=== PATIENT | female | born 1970 | race Two or more races ===

== ENCOUNTER 2021-05-25 20:00 | Inpatient (IN) | payer MEDICAID ==
[~2021-05-25] VITALS: Ht 157.5 cm; Wt 54.0 kg
[2021-05-25] MEDS ORDERED: MORPHINE SULFATE 2 MG/ML CPJ (NOT FOR IM USE) IV NR (20:30)
[2021-05-25] MEDS ORDERED: ONDANSETRON HCL 4MG/2ML INJ IV NR (20:30)
[2021-05-25] MEDS ORDERED: SODIUM CHLORIDE 0.9% 1,000 ML IV ONE ×2 (20:30→23:00)
[2021-05-25 21:35] LABS: BG BASE EXCESS 0.3 mmol/L (-2.0-2.0); BG CARBOXYHEMOGLOBIN 0.2 % (0.5-1.5); BG DEOXYHEMOGLOBIN 3.5 % (0.0-5.0); BG FRACTION INSPIRED OXYGEN 21; BG HCO3 ACT 23.3 mmol/L (22.0-26.0); BG METHEMOGLOBIN 0.2 % (0.0-1.5); BG OXYGEN SATURATION 96.5 % (92.0-98.5); BG OXYHEMOGLOBIN 96.1 % (94.0-97.0); BG PH 7.493 (7.350-7.450); BG PO2 88.1 mmHg (75.0-100.0); BG SAMPLE SITE RIGHT RADIAL; BG TOTAL HEMOGLOBIN 8.9 g/dL (12.0-18.0); BG VENT MODE ROOM AIR
[2021-05-25 21:40] LABS: HEMATOCRIT. 27.1 % (36.0-48.0); HEMOGLOBIN. 8.9 g/dL (12.0-16.0); MEAN CORPUSCULAR HEMOGLOBIN 27.4 pg (28.0-32.0); MEAN CORPUSCULAR VOLUME 83.1 fL (81.0-99.0); MEAN PLATELET VOLUME 8.2 fl (7.4-10.4); PLATELET 174 x1000/uL (130-400); RED BLOOD CELL COUNT 3.26 mill/uL (4.2-5.4); RED CELL DISTRIBUTION WIDTH 19.3 % (11.6-14.6)
[2021-05-25 21:45] LABS: CHLORIDE 108 mEq/L (98-107)
[2021-05-25 21:47] LABS: INR 1.3; PROTHROMBIN TIME 13.5 sec (9.6-11.0)
[2021-05-25 21:49] LABS: ETHANOL BLOOD < 10 mg/dL
[2021-05-25 21:53] LABS: CREATINE KINASE 27 IU/L (26-192)
[2021-05-25 22:14] LABS: PLATELET ESTIMATE NORMAL
[2021-05-25 22:18] LABS: CLARITY URINE CLEAR (CLEAR); COLOR URINE DARK YELLOW (YELLOW); KETONES URINE NEGATIVE (NEGATIVE); LEUKOCYTE ESTERASE URINE NEGATIVE (NEGATIVE); NITRITE URINE NEGATIVE (NEGATIVE); OCCULT BLOOD URINE NEGATIVE (NEGATIVE); PROTEIN URINE 1+ (NEGATIVE); SPECIFIC GRAVITY URINE 1.019 (1.005-1.030)
[2021-05-25 22:32] LABS: METHADONE URINE SCREEN NEGATIVE (NEGATIVE)
[2021-05-25 22:33] LABS: *AMPHETAMINES SCREEN URINE NEGATIVE (NEGATIVE); *BARBITURATES SCREEN URINE NEGATIVE (NEGATIVE); *BENZODIAZEPINES SCREEN URINE NEGATIVE (NEGATIVE); *COCAINE SCREEN URINE NEGATIVE (NEGATIVE); CANNABINOID URINE SCREEN NEGATIVE (NEGATIVE); OPIATES URINE SCREEN PRESUMTIVE POSITIVE (NEGATIVE); PHENCYCLIDINE URINE SCREEN NEGATIVE (NEGATIVE)
[2021-05-25] MEDS ORDERED: PIPERACILLIN/TAZ 3.375G PREMIX 50 ML IV NR (23:00)
[2021-05-25] MEDS ORDERED: PIPERACILLIN/TAZOBACTAM 3.375GM/50ML PREMIX IV ONE (23:00)
[2021-05-25] MEDS ORDERED: VANCOMYCIN 1 G PREMIX 200 ML IV NR (23:00)
[2021-05-25] MEDS ORDERED: MORPHINE SULFATE 4 MG/ML CPJ (NOT FOR IM USE) IV ONE (23:45)
[2021-05-25] MEDS ORDERED: MORPHINE SULFATE 2 MG/ML CPJ (NOT FOR IM USE) IV SCH (23:45)
[2021-05-26] MEDS ORDERED: POTASSIUM CHLORIDE 20MEQ TABLET SR PO SCH (05:45)
[2021-05-26] MEDS: MORPHINE SULFATE 2 MG/ML CPJ (NOT FOR IM USE) IV PRN ×2 (05:48→12:01)
[2021-05-26 12:02] VITALS: BP 101/65
[2021-05-26] MEDS ORDERED: HYDROCODONE/ACETAMINOPHEN 5/325MG TABLET PO PRN (13:00)
[2021-05-26] MEDS ORDERED: ONDANSETRON HCL 4MG/2ML INJ IV PRN (13:00)
[2021-05-26] MEDS ORDERED: FUROSEMIDE 40MG/4ML VIAL IVP NR (13:00)
[2021-05-26] MEDS ORDERED: NALOXONE HCL 0.4MG/ML VIAL IV PRN ×2 (13:15→20:00)
[2021-05-26] MEDS: VANCOMYCIN 500 MG PREMIX 100 ML IV SCH (15:09)
[2021-05-26] MEDS: PIPERACILLIN/TAZOBACTAM 3.375 G in DEXTROSE 5% WATER 50 ML IV SCH ×3 (15:09→22:00)
[2021-05-26 16:00] VITALS: BP 104/61
[2021-05-26] MEDS: HYDROCODONE/ACETAMINOPHEN 10/325MG TABLET PO PRN (19:46)
[2021-05-26 20:00] VITALS: BP 118/61
[2021-05-26] MEDS ORDERED: MORPHINE SULFATE 2 MG/ML CPJ (NOT FOR IM USE) IV PRN (23:30)
[2021-05-27] VITALS: BP 124/64
[2021-05-27 04:00] VITALS: BP 121/65
[2021-05-27] MEDS: PIPERACILLIN/TAZOBACTAM 3.375 G in DEXTROSE 5% WATER 50 ML IV SCH ×2 (05:19→13:26)
[2021-05-27] MEDS: HYDROCODONE/ACETAMINOPHEN 10/325MG TABLET PO PRN ×3 (06:49→20:44)
[2021-05-27 08:00] VITALS: BP 118/55
[2021-05-27] MEDS: VANCOMYCIN 500 MG PREMIX 100 ML IV SCH (08:00)
[2021-05-27 12:00] VITALS: BP 112/67
[2021-05-27 12:32] LABS: HEMATOCRIT. 27.2 % (36.0-48.0); MEAN CORPUSCULAR HEMOGLOBIN 27.5 pg (28.0-32.0); MEAN CORPUSCULAR VOLUME 82.7 fL (81.0-99.0); MEAN PLATELET VOLUME 8.4 fl (7.4-10.4); PLATELET 184 x1000/uL (130-400); RED BLOOD CELL COUNT 3.29 mill/uL (4.2-5.4); RED CELL DISTRIBUTION WIDTH 19.3 % (11.6-14.6)
[2021-05-27] MEDS: LEVOTHYROXINE SODIUM 50MCG TABLET PO SCH (13:39)
[2021-05-27 13:49] LABS: PLATELET ESTIMATE NORMAL
[2021-05-27 16:00] VITALS: BP 117/62
[2021-05-27 20:00] VITALS: BP 112/67
[2021-05-27] MEDS ORDERED: CEFTRIAXONE 1 G PREMIX 50 ML IV SCH (20:30)
[2021-05-27] MEDS: CEFTRIAXONE 1,000 MG in DEXTROSE 5% WATER 50 ML IV SCH (21:00)
[2021-05-28] VITALS (11 sets, daily range): BP systolic 103–125; BP diastolic 54–72
[2021-05-28] MEDS: VANCOMYCIN 500 MG PREMIX 100 ML IV SCH ×2 (02:00→14:39)
[2021-05-28] MEDS: HYDROCODONE/ACETAMINOPHEN 10/325MG TABLET PO PRN ×3 (04:46→21:55)
[2021-05-28] MEDS: LEVOTHYROXINE SODIUM 50MCG TABLET PO SCH (06:21)
[2021-05-28] MEDS ORDERED: LIDOCAINE HCL 1% 20ML VIAL (Pyxis) INJ ONE (08:26)
[2021-05-28] MEDS ORDERED: IOHEXOL-300 50 ML BOTTLE IV ONE (09:21)
[2021-05-28] MEDS: MORPHINE SULFATE 2 MG/ML CPJ (NOT FOR IM USE) IV PRN ×2 (10:21→17:22)
[2021-05-28] MEDS: SODIUM CHLORIDE 0.45% 1,000 ML IV SCH (12:54)
[2021-05-28 15:37] LABS: HEMATOCRIT. 21.3 % (36.0-48.0); HEMOGLOBIN. 7.1 g/dL (12.0-16.0); MEAN CORPUSCULAR HEMOGLOBIN 26.9 pg (28.0-32.0); MEAN CORPUSCULAR VOLUME 81.3 fL (81.0-99.0); MEAN PLATELET VOLUME 8.5 fl (7.4-10.4); PLATELET 154 x1000/uL (130-400); RED BLOOD CELL COUNT 2.63 mill/uL (4.2-5.4); RED CELL DISTRIBUTION WIDTH 18.9 % (11.6-14.6)
[2021-05-28] MEDS ORDERED: POTASSIUM CHLORIDE 20MEQ TABLET SR PO NR (17:00)
[2021-05-28] MEDS: CEFTRIAXONE 1,000 MG in DEXTROSE 5% WATER 50 ML IV SCH (21:43)
[2021-05-28 21:52] LABS: PLATELET ESTIMATE NORMAL
[2021-05-28 23:47] LABS: HEMATOCRIT 25.1 % (36.0-48.0); HEMOGLOBIN 8.4 g/dL (12.0-16.0)
[2021-05-29] VITALS: BP 91/61
[2021-05-29 04:00] VITALS: BP 116/67
[2021-05-29] MEDS: MORPHINE SULFATE 2 MG/ML CPJ (NOT FOR IM USE) IV PRN ×3 (04:55→18:22)
[2021-05-29 05:48] VITALS: BP 116/67
[2021-05-29] MEDS: LEVOTHYROXINE SODIUM 50MCG TABLET PO SCH (06:04)
[2021-05-29] MEDS: SODIUM CHLORIDE 0.45% 1,000 ML IV SCH (06:05)
[2021-05-29 06:28] LABS: HEMATOCRIT. 25.3 % (36.0-48.0); HEMOGLOBIN. 8.4 g/dL (12.0-16.0); MEAN CORPUSCULAR HEMOGLOBIN 26.7 pg (28.0-32.0); MEAN PLATELET VOLUME 8.7 fl (7.4-10.4); PLATELET 149 x1000/uL (130-400); RED BLOOD CELL COUNT 3.16 mill/uL (4.2-5.4); RED CELL DISTRIBUTION WIDTH 17.3 % (11.6-14.6)
[2021-05-29 11:17] LABS: PLATELET ESTIMATE NORMAL
[2021-05-29 12:00] VITALS: BP 120/88
[2021-05-29] MEDS: VANCOMYCIN 500 MG PREMIX 100 ML IV SCH (13:58)
[2021-05-29] MEDS: HYDROCODONE/ACETAMINOPHEN 10/325MG TABLET PO PRN ×2 (14:00→21:22)
[2021-05-29] MEDS ORDERED: SYN150 PO (14:12)
[2021-05-29] MEDS ORDERED: OXYC30TA86 PO (14:12)
[2021-05-29] MEDS ORDERED: FLUO15CR2 TP (14:12)
[2021-05-29] MEDS ORDERED: MUPI1OIN4 TP (14:12)
[2021-05-29] MEDS ORDERED: SIMV-43 PO (14:12)
[2021-05-29 16:00] VITALS: BP 118/76
[2021-05-29] MEDS: MEROPENEM 1,000 MG in SODIUM CHLORIDE 0.9% 100 ML IV SCH (17:23)
[2021-05-29 20:00] VITALS: BP 121/61
[2021-05-30 00:05] VITALS: BP 119/65
[2021-05-30] MEDS: MORPHINE SULFATE 2 MG/ML CPJ (NOT FOR IM USE) IV PRN ×2 (00:06→05:03)
[2021-05-30] MEDS: SODIUM CHLORIDE 0.45% 1,000 ML IV SCH ×2 (00:06→22:49)
[2021-05-30 04:00] VITALS: BP 114/52
[2021-05-30] MEDS: LEVOTHYROXINE SODIUM 50MCG TABLET PO SCH (05:03)
[2021-05-30] MEDS: MEROPENEM 1,000 MG in SODIUM CHLORIDE 0.9% 100 ML IV SCH ×2 (05:03→17:07)
[2021-05-30] MEDS: ASCORBIC ACID 500 MG TABLET PO SCH (08:09)
[2021-05-30] MEDS: VANCOMYCIN 500 MG PREMIX 100 ML IV SCH (08:09)
[2021-05-30] MEDS: ZINC SULFATE 220 MG ( 50 ) CAPSULE PO SCH (08:09)
[2021-05-30] MEDS: MULTIVITAMINS,THER W-MINERALS TABLET PO SCH (08:09)
[2021-05-30 08:41] LABS: HEMOGLOBIN. 9.5 g/dL (12.0-16.0); MEAN CORPUSCULAR HEMOGLOBIN 27.2 pg (28.0-32.0); MEAN CORPUSCULAR VOLUME 80.4 fL (81.0-99.0); MEAN PLATELET VOLUME 8.4 fl (7.4-10.4); PLATELET 154 x1000/uL (130-400); RED BLOOD CELL COUNT 3.49 mill/uL (4.2-5.4); RED CELL DISTRIBUTION WIDTH 17.9 % (11.6-14.6)
[2021-05-30 08:51] LABS: CHLORIDE 109 mEq/L (98-107)
[2021-05-30 10:04] LABS: PLATELET ESTIMATE NORMAL
[2021-05-30 10:06] LABS: KAPPA/LAMBDA RATIO 0.97 (0.26-1.65); LAMBDA LT CHAINS FREE SERUM 129.4 mg/L (5.7-26.3)
[2021-05-30] MEDS: HYDROCODONE/ACETAMINOPHEN 10/325MG TABLET PO PRN (10:19)
[2021-05-30 12:00] VITALS: BP 110/67
[2021-05-30] MEDS: OXYCODONE HCL 20MG TABLET SR 12HR PO SCH ×2 (14:16→22:48)
[2021-05-30 16:00] VITALS: BP 109/60
[2021-05-30 20:00] VITALS: BP 106/48
[2021-05-31] VITALS: BP 110/89
[2021-05-31] MEDS: VANCOMYCIN 500 MG PREMIX 100 ML IV SCH (01:44)
[2021-05-31] MEDS: HYDROCODONE/ACETAMINOPHEN 10/325MG TABLET PO PRN ×2 (03:19→17:20)
[2021-05-31 04:00] VITALS: BP 97/58
[2021-05-31] MEDS: MEROPENEM 1,000 MG in SODIUM CHLORIDE 0.9% 100 ML IV SCH ×2 (04:37→16:05)
[2021-05-31 08:00] VITALS: BP 164/64
[2021-05-31] MEDS: ZINC SULFATE 220 MG ( 50 ) CAPSULE PO SCH (09:18)
[2021-05-31] MEDS: MULTIVITAMINS,THER W-MINERALS TABLET PO SCH (09:18)
[2021-05-31] MEDS: ASCORBIC ACID 500 MG TABLET PO SCH (09:18)
[2021-05-31] MEDS: LEVOTHYROXINE SODIUM 50MCG TABLET PO SCH (09:19)
[2021-05-31] MEDS: OXYCODONE HCL 20MG TABLET SR 12HR PO SCH ×2 (09:19→21:42)
[2021-05-31] MEDS ORDERED: MIDAZOLAM HCL 5 MG/5 ML VIAL ONE (10:06)
[2021-05-31] MEDS ORDERED: LIDOCAINE HCL 2% JELLY 5ML ONE (10:06)
[2021-05-31] MEDS ORDERED: TETRACAINE/BENZOCAINE/BUTAMBEN 20 GM SPRAY MM ONE (10:06)
[2021-05-31] MEDS ORDERED: FENTANYL CITRATE/PF 50MCG/ML 5ML VIAL ONE (10:06)
[2021-05-31 10:28] LABS: CHLORIDE 111 mEq/L (98-107); HEMATOCRIT. 25.9 % (36.0-48.0); HEMOGLOBIN. 8.6 g/dL (12.0-16.0); MEAN CORPUSCULAR VOLUME 81.3 fL (81.0-99.0); MEAN PLATELET VOLUME 8.5 fl (7.4-10.4); PLATELET 145 x1000/uL (130-400); RED BLOOD CELL COUNT 3.19 mill/uL (4.2-5.4); RED CELL DISTRIBUTION WIDTH 18.4 % (11.6-14.6)
[2021-05-31 12:00] VITALS: BP 117/71
[2021-05-31] MEDS ORDERED: HEPARIN 5000 UNITS/ML VIAL IV PRN ×2 (13:30)
[2021-05-31 16:00] VITALS: BP 129/75
[2021-05-31 16:01] LABS: INR 1.2; PARTIAL THROMBOPLASTIN TIME 38.6 sec (23.4-31.0)
[2021-05-31] MEDS ORDERED: HEPARIN 5000 UNITS/ML VIAL IV SCH (16:15)
[2021-05-31] MEDS: VANCOMYCIN 750 MG PREMIX 150 ML IV SCH (17:19)
[2021-05-31 17:29] LABS: TOTAL IRON BINDING CAPACITY 36 ug/dL (250-450)
[2021-05-31] MEDS: HEPARIN 25,000 UNITS PREMIX 250 ML IV PRN (18:12)
[2021-05-31] MEDS: SODIUM CHLORIDE 0.45% 1,000 ML IV SCH (18:28)
[2021-05-31 19:31] LABS: PLATELET ESTIMATE NORMAL
[2021-05-31 20:00] VITALS: BP 119/67
[2021-06-01] VITALS: BP 118/66
[2021-06-01 04:00] VITALS: BP 122/70
[2021-06-01] MEDS: MEROPENEM 1,000 MG in SODIUM CHLORIDE 0.9% 100 ML IV SCH ×2 (05:08→17:32)
[2021-06-01] MEDS: HYDROCODONE/ACETAMINOPHEN 10/325MG TABLET PO PRN ×2 (05:09→15:42)
[2021-06-01] MEDS: LEVOTHYROXINE SODIUM 50MCG TABLET PO SCH (06:34)
[2021-06-01 07:33] LABS: HEMATOCRIT. 24.6 % (36.0-48.0); MEAN CORPUSCULAR HEMOGLOBIN 26.5 pg (28.0-32.0); MEAN PLATELET VOLUME 8.4 fl (7.4-10.4); PLATELET 167 x1000/uL (130-400); RED BLOOD CELL COUNT 3.04 mill/uL (4.2-5.4); RED CELL DISTRIBUTION WIDTH 18.2 % (11.6-14.6)
[2021-06-01 07:40] LABS: CHLORIDE 112 mEq/L (98-107)
[2021-06-01 08:00] VITALS: BP 123/69
[2021-06-01] MEDS: OXYCODONE HCL 20MG TABLET SR 12HR PO SCH ×2 (08:56→20:46)
[2021-06-01] MEDS: MULTIVITAMINS,THER W-MINERALS TABLET PO SCH (08:56)
[2021-06-01] MEDS: ZINC SULFATE 220 MG ( 50 ) CAPSULE PO SCH (08:56)
[2021-06-01] MEDS: ASCORBIC ACID 500 MG TABLET PO SCH (08:56)
[2021-06-01 12:00] VITALS: BP 138/78
[2021-06-01] MEDS: NYSTATIN/TRIAMCIN OINT 15GM TOP SCH ×2 (12:59→17:32)
[2021-06-01] MEDS: VANCOMYCIN 750 MG PREMIX 150 ML IV SCH (12:59)
[2021-06-01] MEDS: SODIUM CHLORIDE 0.45% 1,000 ML IV SCH (15:41)
[2021-06-01 16:00] VITALS: BP 128/76
[2021-06-01 20:00] VITALS: BP 132/69
[2021-06-01 23:13] LABS: PLATELET ESTIMATE NORMAL
[2021-06-02] VITALS: BP 128/77
[2021-06-02] MEDS: HYDROCODONE/ACETAMINOPHEN 10/325MG TABLET PO PRN (01:51)
[2021-06-02 04:00] VITALS: BP 119/69
[2021-06-02] MEDS: MEROPENEM 1,000 MG in SODIUM CHLORIDE 0.9% 100 ML IV SCH ×2 (04:35→17:00)
[2021-06-02 04:39] LABS: HEMATOCRIT. 23.8 % (36.0-48.0); MEAN CORPUSCULAR HEMOGLOBIN 27.1 pg (28.0-32.0); MEAN CORPUSCULAR VOLUME 80.6 fL (81.0-99.0); MEAN PLATELET VOLUME 8.5 fl (7.4-10.4); PLATELET 189 x1000/uL (130-400); RED BLOOD CELL COUNT 2.95 mill/uL (4.2-5.4); RED CELL DISTRIBUTION WIDTH 17.9 % (11.6-14.6)
[2021-06-02 04:47] LABS: CHLORIDE 110 mEq/L (98-107)
[2021-06-02 04:54] LABS: VANCOMYCIN TROUGH 19.3 ug/mL (5.0-10.0)
[2021-06-02] MEDS: LEVOTHYROXINE SODIUM 50MCG TABLET PO SCH (05:26)
[2021-06-02] MEDS: VANCOMYCIN 750 MG PREMIX 150 ML IV SCH ×2 (05:27→23:25)
[2021-06-02 08:00] VITALS: BP 108/66
[2021-06-02] MEDS: OXYCODONE HCL 20MG TABLET SR 12HR PO SCH ×2 (09:00→20:17)
[2021-06-02] MEDS: NYSTATIN/TRIAMCIN OINT 15GM TOP SCH ×3 (10:30→17:00)
[2021-06-02] MEDS: ASCORBIC ACID 500 MG TABLET PO SCH (10:30)
[2021-06-02] MEDS: ZINC SULFATE 220 MG ( 50 ) CAPSULE PO SCH (10:30)
[2021-06-02] MEDS: MULTIVITAMINS,THER W-MINERALS TABLET PO SCH (10:30)
[2021-06-02 12:00] VITALS: BP 112/59
[2021-06-02] MEDS ORDERED: FENTANYL CITRATE/PF 50MCG/ML 5ML VIAL ONE (13:45)
[2021-06-02] MEDS ORDERED: LIDOCAINE HCL 1% 20ML VIAL (Pyxis) INJ ONE (13:45)
[2021-06-02] MEDS ORDERED: IODIXANOL 320MG/ML 100 ML BOTTLE IV ONE (13:45)
[2021-06-02] MEDS ORDERED: MIDAZOLAM HCL 5 MG/5 ML VIAL ONE (13:45)
[2021-06-02] MEDS: SODIUM CHLORIDE 0.45% 1,000 ML IV SCH (14:41)
[2021-06-02 16:00] VITALS: BP 124/63
[2021-06-02] MEDS: HEPARIN 25,000 UNITS PREMIX 250 ML IV PRN (16:18)
[2021-06-02 18:39] LABS: PLATELET ESTIMATE NORMAL
[2021-06-02 20:00] VITALS: BP 124/79
[2021-06-03] VITALS (10 sets, daily range): BP systolic 106–135; BP diastolic 42–77
[2021-06-03] MEDS: HYDROCODONE/ACETAMINOPHEN 10/325MG TABLET PO PRN ×2 (03:10→18:55)
[2021-06-03] MEDS: MEROPENEM 1,000 MG in SODIUM CHLORIDE 0.9% 100 ML IV SCH ×2 (05:17→20:56)
[2021-06-03] MEDS: LEVOTHYROXINE SODIUM 50MCG TABLET PO SCH (06:27)
[2021-06-03 07:07] LABS: HEMATOCRIT. 21.6 % (36.0-48.0); HEMOGLOBIN. 7.1 g/dL (12.0-16.0); MEAN CORPUSCULAR HEMOGLOBIN 26.9 pg (28.0-32.0); MEAN CORPUSCULAR VOLUME 81.7 fL (81.0-99.0); MEAN PLATELET VOLUME 8.5 fl (7.4-10.4); PLATELET 195 x1000/uL (130-400); RED BLOOD CELL COUNT 2.64 mill/uL (4.2-5.4)
[2021-06-03 07:17] LABS: CHLORIDE 111 mEq/L (98-107)
[2021-06-03] MEDS: NYSTATIN/TRIAMCIN OINT 15GM TOP SCH ×3 (10:08→17:00)
[2021-06-03] MEDS: ASCORBIC ACID 500 MG TABLET PO SCH (10:09)
[2021-06-03] MEDS: SODIUM CHLORIDE 0.45% 1,000 ML IV SCH (10:09)
[2021-06-03] MEDS: ZINC SULFATE 220 MG ( 50 ) CAPSULE PO SCH (10:09)
[2021-06-03] MEDS: MULTIVITAMINS,THER W-MINERALS TABLET PO SCH (10:09)
[2021-06-03 18:08] LABS: PLATELET ESTIMATE NORMAL
[2021-06-03] MEDS: DRONABINOL 2.5MG CAPSULE PO SCH (18:54)
[2021-06-03] MEDS: VANCOMYCIN 750 MG PREMIX 150 ML IV SCH (20:56)
[2021-06-03] MEDS: OXYCODONE HCL 20MG TABLET SR 12HR PO SCH (20:56)
[2021-06-04] VITALS: BP 122/69
[2021-06-04 00:09] LABS: HEMOGLOBIN 10.2 g/dL (12.0-16.0); MEAN CORPUSCULAR HEMOGLOBIN 28.2 pg (28.0-32.0); MEAN CORPUSCULAR VOLUME 83.1 fL (81.0-99.0); PLATELET 259 x1000/uL (130-400); RED BLOOD CELL COUNT 3.61 mill/uL (4.2-5.4); RED CELL DISTRIBUTION WIDTH 18.1 % (11.6-14.6)
[2021-06-04 04:00] VITALS: BP 135/65
[2021-06-04] MEDS: MEROPENEM 1,000 MG in SODIUM CHLORIDE 0.9% 100 ML IV SCH ×2 (04:21→16:58)
[2021-06-04] MEDS: LEVOTHYROXINE SODIUM 50MCG TABLET PO SCH (07:10)
[2021-06-04 07:28] LABS: HEMATOCRIT. 26.7 % (36.0-48.0); HEMOGLOBIN. 9.2 g/dL (12.0-16.0); MEAN CORPUSCULAR HEMOGLOBIN 28.6 pg (28.0-32.0); MEAN PLATELET VOLUME 7.9 fl (7.4-10.4); PLATELET 217 x1000/uL (130-400); RED BLOOD CELL COUNT 3.21 mill/uL (4.2-5.4); RED CELL DISTRIBUTION WIDTH 18.4 % (11.6-14.6)
[2021-06-04 07:41] LABS: CHLORIDE 110 mEq/L (98-107)
[2021-06-04 08:00] VITALS: BP 120/95
[2021-06-04] MEDS: ZINC SULFATE 220 MG ( 50 ) CAPSULE PO SCH (09:00)
[2021-06-04] MEDS: ASCORBIC ACID 500 MG TABLET PO SCH (09:00)
[2021-06-04] MEDS: NYSTATIN/TRIAMCIN OINT 15GM TOP SCH ×3 (09:00→17:03)
[2021-06-04] MEDS: OXYCODONE HCL 20MG TABLET SR 12HR PO SCH ×2 (09:00→21:44)
[2021-06-04] MEDS: MULTIVITAMINS,THER W-MINERALS TABLET PO SCH (09:00)
[2021-06-04] MEDS: HYDROCODONE/ACETAMINOPHEN 10/325MG TABLET PO PRN (10:25)
[2021-06-04] MEDS ORDERED: MIDAZOLAM HCL 2 MG/2 ML VIAL ONE ×2 (11:25→11:57)
[2021-06-04] MEDS ORDERED: FENTANYL CITRATE/PF 50MCG/ML 2ML VIAL ONE ×2 (11:25→11:57)
[2021-06-04] MEDS ORDERED: IODIXANOL 320MG/ML 100 ML BOTTLE IV ONE (11:26)
[2021-06-04] MEDS ORDERED: LIDOCAINE HCL 1% 20ML VIAL (Pyxis) INJ ONE (11:26)
[2021-06-04] MEDS ORDERED: DIPHENHYDRAMINE 50MG/ML VIAL ONE (11:32)
[2021-06-04] MEDS ORDERED: VERAPAMIL HCL 2.5 MG/1 ML 2ML VIAL IV ONE (11:50)
[2021-06-04] MEDS: VANCOMYCIN 750 MG PREMIX 150 ML IV SCH (12:00)
[2021-06-04] MEDS ORDERED: ATROPINE SULFATE 1MG/10ML SYR IV PRN (12:45)
[2021-06-04] MEDS ORDERED: ACETAMINOPHEN 325MG TABLET PO PRN (12:45)
[2021-06-04 14:28] LABS: PLATELET ESTIMATE NORMAL
[2021-06-04 16:00] VITALS: BP 135/77
[2021-06-04] MEDS: DRONABINOL 2.5MG CAPSULE PO SCH (17:03)
[2021-06-04 20:00] VITALS: BP 134/56
[2021-06-04] MEDS: SODIUM CHLORIDE 0.45% 1,000 ML IV SCH ×2 (21:44→23:15)
[2021-06-05] VITALS: BP 132/73
[2021-06-05 04:00] VITALS: BP 137/73
[2021-06-05] MEDS: MEROPENEM 1,000 MG in SODIUM CHLORIDE 0.9% 100 ML IV SCH ×2 (05:26→18:41)
[2021-06-05] MEDS: VANCOMYCIN 750 MG PREMIX 150 ML IV SCH ×2 (05:27→23:48)
[2021-06-05] MEDS: LEVOTHYROXINE SODIUM 50MCG TABLET PO SCH (06:11)
[2021-06-05 07:08] LABS: HEMATOCRIT. 27.8 % (36.0-48.0); HEMOGLOBIN. 9.5 g/dL (12.0-16.0); MEAN CORPUSCULAR HEMOGLOBIN 28.6 pg (28.0-32.0); MEAN CORPUSCULAR VOLUME 83.9 fL (81.0-99.0); MEAN PLATELET VOLUME 8.2 fl (7.4-10.4); PLATELET 236 x1000/uL (130-400); RED BLOOD CELL COUNT 3.31 mill/uL (4.2-5.4); RED CELL DISTRIBUTION WIDTH 18.6 % (11.6-14.6)
[2021-06-05] MEDS ORDERED: MORPHINE SULFATE 2 MG/ML CPJ (NOT FOR IM USE) IV NR (07:15)
[2021-06-05 07:18] LABS: CHLORIDE 113 mEq/L (98-107)
[2021-06-05 08:20] VITALS: BP 138/74
[2021-06-05] MEDS: ASCORBIC ACID 500 MG TABLET PO SCH (08:23)
[2021-06-05] MEDS: MULTIVITAMINS,THER W-MINERALS TABLET PO SCH (08:23)
[2021-06-05] MEDS: ZINC SULFATE 220 MG ( 50 ) CAPSULE PO SCH (08:23)
[2021-06-05] MEDS: NYSTATIN/TRIAMCIN OINT 15GM TOP SCH ×3 (08:23→18:42)
[2021-06-05] MEDS ORDERED: EPOETIN ALFA-EPBX 10,000 UNIT/ML VIAL SUBCUT NR (09:00)
[2021-06-05 12:19] VITALS: BP 125/70
[2021-06-05] MEDS: DRONABINOL 2.5MG CAPSULE PO SCH (13:19)
[2021-06-05] MEDS: OXYCODONE HCL 20MG TABLET SR 12HR PO SCH ×2 (13:19→22:12)
[2021-06-05 16:00] VITALS: BP 117/60
[2021-06-05 18:08] LABS: PLATELET ESTIMATE NORMAL
[2021-06-05] MEDS: SODIUM CHLORIDE 0.45% 1,000 ML IV SCH (18:41)
[2021-06-05] MEDS: HYDROCODONE/ACETAMINOPHEN 10/325MG TABLET PO PRN (18:41)
[2021-06-06] VITALS: BP 126/62
[2021-06-06 04:00] VITALS: BP 114/65
[2021-06-06] MEDS: MEROPENEM 1,000 MG in SODIUM CHLORIDE 0.9% 100 ML IV SCH ×2 (04:54→18:11)
[2021-06-06] MEDS: HYDROCODONE/ACETAMINOPHEN 10/325MG TABLET PO PRN ×3 (04:55→18:10)
[2021-06-06 08:00] VITALS: BP 135/62
[2021-06-06] MEDS: LEVOTHYROXINE SODIUM 50MCG TABLET PO SCH (10:19)
[2021-06-06] MEDS: ASCORBIC ACID 500 MG TABLET PO SCH (10:19)
[2021-06-06] MEDS: MULTIVITAMINS,THER W-MINERALS TABLET PO SCH (10:19)
[2021-06-06] MEDS: OXYCODONE HCL 20MG TABLET SR 12HR PO SCH ×2 (10:20→21:41)
[2021-06-06] MEDS: NYSTATIN/TRIAMCIN OINT 15GM TOP SCH ×3 (10:20→18:09)
[2021-06-06] MEDS: ZINC SULFATE 220 MG ( 50 ) CAPSULE PO SCH (10:20)
[2021-06-06 12:00] VITALS: BP 110/50
[2021-06-06] MEDS: DRONABINOL 2.5MG CAPSULE PO SCH (14:43)
[2021-06-06] MEDS: SODIUM CHLORIDE 0.45% 1,000 ML IV SCH (14:44)
[2021-06-06 16:00] VITALS: BP 110/58
[2021-06-06] MEDS: VANCOMYCIN 750 MG PREMIX 150 ML IV SCH (18:10)
[2021-06-06 20:00] VITALS: BP 115/58
[2021-06-07] VITALS: BP 106/66
[2021-06-07 04:00] VITALS: BP 111/57
[2021-06-07] MEDS: MEROPENEM 1,000 MG in SODIUM CHLORIDE 0.9% 100 ML IV SCH (04:32)
[2021-06-07] MEDS: HYDROCODONE/ACETAMINOPHEN 10/325MG TABLET PO PRN ×2 (04:33→14:04)
[2021-06-07] MEDS: LEVOTHYROXINE SODIUM 50MCG TABLET PO SCH (07:12)
[2021-06-07 08:00] VITALS: BP 114/61
[2021-06-07] MEDS: MULTIVITAMINS,THER W-MINERALS TABLET PO SCH (10:01)
[2021-06-07] MEDS: ASCORBIC ACID 500 MG TABLET PO SCH (10:02)
[2021-06-07] MEDS: ZINC SULFATE 220 MG ( 50 ) CAPSULE PO SCH (10:02)
[2021-06-07] MEDS: OXYCODONE HCL 20MG TABLET SR 12HR PO SCH (10:02)
[2021-06-07] MEDS: NYSTATIN/TRIAMCIN OINT 15GM TOP SCH (10:03)
[2021-06-07 13:47] VITALS: BP 110/79
[2021-06-07 14:04] VITALS: BP 110/79
== END 2021-06-07 15:00 | DRG 720 ==
LOC: ER 20:00 → MICUSO 05-26 01:18 → EDBEDREQSVC 05-26 01:22 → EDBEDREQDT 05-26 01:22 → EDBEDREQ 05-26 01:22 → EDBEDREQTM 05-26 01:22 → 8WST 05-26 08:22
PROVIDERS: ADMIT Internal Medicine; ATTEND Internal Medicine
PROC: 02HV33Z Insertion of Infusion Device into Superior Vena Cava, Percutaneous Approach (ICD-10-PCS; 2021-05-28)
PROC: B548ZZA Ultrasonography of Superior Vena Cava, Guidance (ICD-10-PCS; 2021-05-28)
PROC: B5181ZA Fluoroscopy of Superior Vena Cava using Low Osmolar Contrast, Guidance (ICD-10-PCS; 2021-05-28)
PROC: 30233N1 Transfusion of Nonautologous Red Blood Cells into Peripheral Vein, Percutaneous Approach (ICD-10-PCS; 2021-05-28)
PROC: 30233N1 Transfusion of Nonautologous Red Blood Cells into Peripheral Vein, Percutaneous Approach (ICD-10-PCS; 2021-06-03)
PROC: 4A023N7 Measurement of Cardiac Sampling and Pressure, Left Heart, Percutaneous Approach (ICD-10-PCS; principal; 2021-06-04)
PROC: B211YZZ Fluoroscopy of Multiple Coronary Arteries using Other Contrast (ICD-10-PCS; 2021-06-04)
DX: A41.89 Other specified sepsis (principal); N17.0 Acute kidney failure with tubular necrosis; E43 Unspecified severe protein-calorie malnutrition; B49 Unspecified mycosis; C90.00 Multiple myeloma not having achieved remission; E87.8 Other disorders of electrolyte and fluid balance, not elsewhere classified; I13.0 Hypertensive heart and chronic kidney disease with heart failure and stage 1 through stage 4 chronic kidney disease, or unspecified chronic kidney disease; I50.32 Chronic diastolic (congestive) heart failure; D64.9 Anemia, unspecified; B36.9 Superficial mycosis, unspecified; L03.115 Cellulitis of right lower limb; D15.1 Benign neoplasm of heart; B96.4 Proteus (mirabilis) (morganii) as the cause of diseases classified elsewhere; E78.5 Hyperlipidemia, unspecified; E87.6 Hypokalemia; N18.9 Chronic kidney disease, unspecified; I34.0 Nonrheumatic mitral (valve) insufficiency; I34.1 Nonrheumatic mitral (valve) prolapse; I73.9 Peripheral vascular disease, unspecified; Z68.21 Body mass index [BMI] 21.0-21.9, adult; Z20.822 Contact with and (suspected) exposure to COVID-19; L03.116 Cellulitis of left lower limb
CPT/HCPCS: 36415; 36573; 36600; 71045; 75898; 80048; 80053; 80202; 80305; 80320; 81003; 82375; 82378; 82550; 82728; 82784; 82805; 83540; 83550; 83605; 83880; 83883; 84145; 84443; 84484; 85014; 85018; 85025; 85027; 86140; 86334; 86850; 86900; 86920; 87077; 87106; 87186; 87426; 93005; 93306; 93308; 93312; 93458; 93923; 93970; 99291; C1725; C1769; C1887; C1893; J0696; J0885; J1200; J1644; J1940; J2185; J2250; J2270; J2405; J2543; J3010; J3370; J3490; J7030; J7040; J7050; J7060; P9016; Q0167; Q9967; G0480

== ENCOUNTER 2021-06-09 17:58 | Emergency (ER) | payer MEDICAID ==
[~2021-06-09] VITALS: Ht 167.6 cm; Wt 50.0 kg
[~2021-06-09 17:58] MED LIST: FLUO15CR2 TP; MUPI1OIN4 TP; OXYC30TA86 PO; SIMV-43 PO; SYN150 PO
[2021-06-09 22:03] LABS: HEMATOCRIT. 29.4 % (36.0-48.0); HEMOGLOBIN. 9.7 g/dL (12.0-16.0); MEAN CORPUSCULAR HEMOGLOBIN 29.2 pg (28.0-32.0); MEAN CORPUSCULAR VOLUME 88.9 fL (81.0-99.0); MEAN PLATELET VOLUME 8.4 fl (7.4-10.4); PLATELET 111 x1000/uL (130-400); RED BLOOD CELL COUNT 3.31 mill/uL (4.2-5.4); RED CELL DISTRIBUTION WIDTH 20.7 % (11.6-14.6)
[2021-06-09 22:10] LABS: CHLORIDE 108 mEq/L (98-107)
[2021-06-09 22:40] LABS: PLATELET ESTIMATE DECREASED
[2021-06-09 22:56] LABS: CLARITY URINE CLOUDY (CLEAR); COLOR URINE DARK YELLOW (YELLOW); KETONES URINE TRACE (NEGATIVE); LEUKOCYTE ESTERASE URINE 1+ (NEGATIVE); NITRITE URINE NEGATIVE (NEGATIVE); OCCULT BLOOD URINE NEGATIVE (NEGATIVE); PROTEIN URINE 1+ (NEGATIVE); SPECIFIC GRAVITY URINE 1.024 (1.005-1.030)
[2021-06-09] MEDS ORDERED: HYDROCODONE/ACETAMINOPHEN 10/325MG TABLET PO ONE (23:15)
[2021-06-10 03:47] VITALS: BP 124/67
== END 2021-06-10 04:00 ==
LOC: ER 17:58 → SUPCPDRO 23:51 → ER 06-10 04:00
DX: L03.818 Cellulitis of other sites (principal); R78.81 Bacteremia; D64.9 Anemia, unspecified; R94.31 Abnormal electrocardiogram [ECG] [EKG]; I50.9 Heart failure, unspecified; Z85.9 Personal history of malignant neoplasm, unspecified
CPT/HCPCS: 36415; 80053; 81003; 85025; 93005; 99285

== ENCOUNTER 2021-07-02 08:58 | Inpatient (IN) | payer MEDICAID ==
[~2021-07-02] VITALS: Ht 167.6 cm; Wt 49.4 kg
[2021-07-02] VITALS (22 sets, daily range): BP systolic 113–150; BP diastolic 64–96
[2021-07-02] MEDS ORDERED: DEL NIDO ELECTROLYTE-S(PH 7.4) 1,000 ML IV ONE ×2 (10:15)
[2021-07-02] MEDS ORDERED: EPINEPHRINE 5 MG in DEXT 5% WATER 245 ML IV ONE (10:15)
[2021-07-02] MEDS ORDERED: INSULIN REGULAR (DRIP) 100 UNITS in SODIUM CHLORIDE 0.9% 99 ML IV ONE (10:15)
[2021-07-02] MEDS ORDERED: AMINOCAPROIC ACID 5,000 MG in SODIUM CHLORIDE 0.9% 230 ML IV ONE (10:15)
[2021-07-02] MEDS ORDERED: NOREPINEPHRINE 8 MG in DEXT 5% WATER 242 ML IV ONE (10:30)
[2021-07-02] MEDS ORDERED: CEFAZOLIN 2000MG in DEXTROSE 5% WATER 100ML IV SCH (10:30)
[2021-07-02] MEDS ORDERED: THROMBIN (BOVINE) 5000 UNITS/VIAL TOP ONE ×3 (10:38→18:00)
[2021-07-02] MEDS ORDERED: POLYMYXIN B SULFATE 500000 UNITS/VIAL ONE ×2 (10:38→18:00)
[2021-07-02] MEDS ORDERED: DOPAMINE 400MG/250ML PREMIX 250 ML IV ONE (10:39)
[2021-07-02] MEDS ORDERED: CHLORHEXIDINE GLUCONATE 4% EXTERNAL USE TOP SCH (10:45)
[2021-07-02 11:30] LABS: HEMATOCRIT. 28.1 % (36.0-48.0); HEMOGLOBIN. 9.1 g/dL (12.0-16.0); MEAN CORPUSCULAR HEMOGLOBIN 28.5 pg (28.0-32.0); MEAN CORPUSCULAR VOLUME 87.4 fL (81.0-99.0); MEAN PLATELET VOLUME 9.3 fl (7.4-10.4); PLATELET 134 x1000/uL (130-400); RED BLOOD CELL COUNT 3.21 mill/uL (4.2-5.4)
[2021-07-02 11:36] LABS: CHLORIDE 106 mEq/L (98-107)
[2021-07-02 11:41] LABS: INR 1.8; PROTHROMBIN TIME 18.2 sec (9.6-11.0)
[2021-07-02 11:47] LABS: HCG SCREEN NEGATIVE
[2021-07-02] MEDS ORDERED: AMINOCAPROIC ACID 250 MG/ML 20ML VIAL ONE ×2 (12:00→15:04)
[2021-07-02] MEDS ORDERED: PHENYLEPHRINE HCL 10 MG/ML 1ML (IV VIAL) IV ONE ×2 (12:00→12:37)
[2021-07-02] MEDS ORDERED: SODIUM BICARBONATE 8.4% 1 MEQ/ML 50ML SYR IV ONE ×5 (12:00→19:32)
[2021-07-02] MEDS ORDERED: MANNITOL 20% (20GM/100ML) BAG 500ML PREMIX IV ONE (12:00)
[2021-07-02] MEDS ORDERED: HEPARIN 1000 UNITS/ML 10ML ONE ×2 (12:00→12:18)
[2021-07-02] MEDS ORDERED: ALBUMIN HUMAN 25GM/100ML (25%) IV ONE ×2 (12:00→14:31)
[2021-07-02 12:18] LABS: PLATELET ESTIMATE NORMAL
[2021-07-02] MEDS ORDERED: BUPIVACAINE HCL/PF 0.5% (5MG/ML) 10ML ONE (12:21)
[2021-07-02] MEDS ORDERED: ACETAMINOPHEN 500MG TABLET ONE (12:26)
[2021-07-02] MEDS ORDERED: MIDAZOLAM HCL 2 MG/2 ML VIAL ONE ×2 (12:26→19:13)
[2021-07-02] MEDS ORDERED: FENTANYL CITRATE/PF 50MCG/ML 2ML VIAL ONE (12:27)
[2021-07-02] MEDS ORDERED: DEXTROSE 50% WATER 50ML SYRINGE IV ONE (12:30)
[2021-07-02] MEDS ORDERED: LABETALOL HCL 5MG/ML VIAL 20ML IV ONE (12:31)
[2021-07-02] MEDS ORDERED: METOCLOPRAMIDE HCL 10MG/2ML VIAL ONE (12:32)
[2021-07-02] MEDS ORDERED: ONDANSETRON HCL 4MG/2ML INJ ONE (12:32)
[2021-07-02] MEDS ORDERED: VECURONIUM BROMIDE 10 MG/VIAL IV ONE ×2 (12:35→19:12)
[2021-07-02] MEDS ORDERED: ETOMIDATE 2MG/ML 10ML VIAL IV ONE (12:48)
[2021-07-02] MEDS ORDERED: TETRACAINE/BENZOCAINE/BUTAMBEN 20 GM SPRAY MM ONE (12:58)
[2021-07-02] MEDS ORDERED: LIDOCAINE HCL/PF 1% 10 MG/ML 5ML VIAL ONE (13:08)
[2021-07-02] MEDS ORDERED: ALBUMIN HUMAN 12.5G/250ML (5%) IV ONE (13:21)
[2021-07-02] MEDS ORDERED: VANCOMYCIN HCL 1 GM/VIAL ONE (14:20)
[2021-07-02] MEDS ORDERED: PROTAMINE SULFATE 10MG/ML VIAL 25ML IV ONE (15:01)
[2021-07-02] MEDS ORDERED: GLYCOPYRROLATE 0.2 MG/ML 2ML VIAL ONE (15:12)
[2021-07-02] MEDS ORDERED: NEOSTIGMINE METHYLSULFATE 1MG/ML 10 ML VIAL ONE (15:12)
[2021-07-02] MEDS ORDERED: SKIN ADHESIVE 0.7 GM EA TOP ONE ×2 (15:15→19:38)
[2021-07-02] MEDS ORDERED: ONDANSETRON HCL 4MG/2ML INJ IV PRN (15:30)
[2021-07-02] MEDS ORDERED: MAGNESIUM SULFATE 3 GM in DEXT 5% WATER 100 ML IV PRN (15:30)
[2021-07-02] MEDS ORDERED: CEFAZOLIN 1000MG PREMIX 50 ML IV SCH (15:30)
[2021-07-02] MEDS ORDERED: MAGNESIUM 1 G PREMIX 100 ML IV PRN (15:30)
[2021-07-02] MEDS ORDERED: MAGNESIUM 2 G PREMIX 50 ML IV PRN (15:30)
[2021-07-02] MEDS ORDERED: ACETAMINOPHEN 325MG TABLET PO PRN (15:30)
[2021-07-02] MEDS ORDERED: KETOROLAC 30MG/ML VIAL IV PRN (15:30)
[2021-07-02] MEDS ORDERED: ALBUMIN HUMAN 25GM/100ML (25%) IV PRN (15:30)
[2021-07-02] MEDS ORDERED: OXYCODONE HCL/ACETAMINOPHEN 5/325MG TABLET PO PRN (15:30)
[2021-07-02] MEDS ORDERED: CALCIUM CHLORIDE 3,000 MG in DEXT 5% WATER 250 ML IV PRN (15:30)
[2021-07-02] MEDS ORDERED: ALBUMIN HUMAN 12.5G/250ML (5%) IV PRN (15:30)
[2021-07-02] MEDS ORDERED: MORPHINE SULFATE 2 MG/ML CPJ (NOT FOR IM USE) IV PRN (15:30)
[2021-07-02] MEDS ORDERED: KCL 10MEQ/50ML PREMIX 200 ML IV PRN (16:00)
[2021-07-02] MEDS ORDERED: KCL 10MEQ/50ML PREMIX 100 ML IV PRN (16:00)
[2021-07-02] MEDS ORDERED: NALOXONE HCL 0.4MG/ML VIAL IV PRN (16:30)
[2021-07-02] MEDS ORDERED: FUROSEMIDE 20MG/2ML VIAL ONE (16:40)
[2021-07-02] MEDS ORDERED: BACITRACIN 15GM TUBE TOP SCH (17:00)
[2021-07-02] MEDS ORDERED: INSULIN REGULAR (DRIP) 100 UNITS in SODIUM CHLORIDE 0.9% 100 ML IV SCH (17:00)
[2021-07-02] MEDS ORDERED: CEFTRIAXONE 2 G PREMIX 50 ML IV SCH (17:15)
[2021-07-02 17:18] LABS: BG CARBOXYHEMOGLOBIN 0.3 % (0.5-1.5); BG DEOXYHEMOGLOBIN 1.8 % (0.0-5.0); BG HCO3 ACT 21.2 mmol/L (22.0-26.0); BG METHEMOGLOBIN 0.5 % (0.0-1.5); BG OXYGEN SATURATION 98.2 % (92.0-98.5); BG OXYHEMOGLOBIN 97.4 % (94.0-97.0); BG PCO2 33.5 mmHg (35.0-45.0); BG PH 7.419 (7.350-7.450); BG PO2 137.8 mmHg (75.0-100.0); BG SAMPLE SITE ALINE; BG TOTAL HEMOGLOBIN 6.5 g/dL (12.0-18.0); BG VENT MODE VENT - AC
[2021-07-02] MEDS ORDERED: SODIUM CHLORIDE 0.9% INJ 10ML FLUSH IVF ONE (18:00)
[2021-07-02 18:20] LABS: CHLORIDE 107 mEq/L (98-107)
[2021-07-02 18:26] LABS: PHOSPHORUS 4.9 mg/dL (2.5-4.9)
[2021-07-02 18:33] LABS: HEMATOCRIT. 22.2 % (36.0-48.0); HEMOGLOBIN. 7.2 g/dL (12.0-16.0); MEAN CORPUSCULAR HEMOGLOBIN 29.9 pg (28.0-32.0); MEAN CORPUSCULAR VOLUME 92.3 fL (81.0-99.0); MEAN PLATELET VOLUME 9.2 fl (7.4-10.4); PLATELET 66 x1000/uL (130-400); RED BLOOD CELL COUNT 2.41 mill/uL (4.2-5.4); RED CELL DISTRIBUTION WIDTH 15.3 % (11.6-14.6)
[2021-07-02] MEDS ORDERED: SODIUM CHLORIDE 0.9% 10ML VIAL ONE ×2 (19:13→19:21)
[2021-07-02] MEDS ORDERED: CEFAZOLIN SODIUM 1000MG/VIAL ONE (19:21)
[2021-07-02] MEDS ORDERED: CALCIUM CHLORIDE 1GM/10ML SYR IV ONE (19:24)
[2021-07-02] MEDS: CEFTRIAXONE 2 G in DEXTROSE 5% WATER 50 ML IV SCH (20:00)
[2021-07-02] MEDS ORDERED: VANCOMYCIN 750 MG PREMIX 150 ML IV NR (20:00)
[2021-07-02] MEDS: DOPAMINE 400MG/250ML PREMIX 250 ML IV SCH (20:00)
[2021-07-02] MEDS: BLOOD SUGAR DIAGNOSTIC STRIP TEST SCH ×4 (20:00→23:00)
[2021-07-02 20:07] LABS: NUCLEATED RED BLOOD CELLS 3 /100 WBC
[2021-07-02 20:08] LABS: PLATELET ESTIMATE DECREASED
[2021-07-02] MEDS ORDERED: AMINOCAPROIC ACID 5,000 MG in SODIUM CHLORIDE 0.9% 230 ML IV NR (20:45)
[2021-07-02] MEDS ORDERED: AMINOCAPROIC ACID 5,000 MG in SODIUM CHLORIDE 0.9% 250 ML IV NR (20:45)
[2021-07-02] MEDS: IPRATROPIUM/ALBUTEROL 0.5-3(2.5)MG/3ML NEB HHN SCH (20:59)
[2021-07-02 23:22] LABS: CLARITY URINE CLEAR (CLEAR); COLOR URINE YELLOW (YELLOW); KETONES URINE NEGATIVE (NEGATIVE); LEUKOCYTE ESTERASE URINE NEGATIVE (NEGATIVE); NITRITE URINE NEGATIVE (NEGATIVE); OCCULT BLOOD URINE NEGATIVE (NEGATIVE); PH URINE 6.5 (4.5-8.0); PROTEIN URINE NEGATIVE (NEGATIVE); SPECIFIC GRAVITY URINE 1.011 (1.005-1.030); UROBILINOGEN URINE 0.2 E.U./dL (0.2-1.0)
[2021-07-03] VITALS (118 sets, daily range): BP systolic 1–210; BP diastolic 0–91
[2021-07-03] MEDS: BLOOD SUGAR DIAGNOSTIC STRIP TEST SCH ×19 (01:00→22:00)
[2021-07-03] MEDS: IPRATROPIUM/ALBUTEROL 0.5-3(2.5)MG/3ML NEB HHN SCH ×6 (01:28→23:55)
[2021-07-03] MEDS: CEFAZOLIN 1000MG PREMIX 50 ML IV SCH ×4 (01:30→17:24)
[2021-07-03] MEDS: DEXTROSE 50% WATER 50ML SYRINGE IV PRN ×6 (01:43→22:36)
[2021-07-03 02:13] LABS: BG CARBOXYHEMOGLOBIN 0.2 % (0.5-1.5); BG DEOXYHEMOGLOBIN 1.3 % (0.0-5.0); BG FRACTION INSPIRED OXYGEN 100; BG HCO3 ACT 15.7 mmol/L (22.0-26.0); BG METHEMOGLOBIN 0.7 % (0.0-1.5); BG OXYGEN SATURATION 98.7 % (92.0-98.5); BG OXYHEMOGLOBIN 97.8 % (94.0-97.0); BG PCO2 26.8 mmHg (35.0-45.0); BG PH 7.386 (7.350-7.450); BG PO2 423.3 mmHg (75.0-100.0); BG SAMPLE SITE ALINE; BG TOTAL HEMOGLOBIN 10.7 g/dL (12.0-18.0); BG VENT MODE VENT - AC
[2021-07-03] MEDS: DOPAMINE 400MG/250ML PREMIX 250 ML IV SCH ×3 (02:29→15:07)
[2021-07-03 02:30] LABS: HEMATOCRIT. 29.6 % (36.0-48.0); HEMOGLOBIN. 10.1 g/dL (12.0-16.0); MEAN PLATELET VOLUME 9.5 fl (7.4-10.4); RED BLOOD CELL COUNT 3.36 mill/uL (4.2-5.4); RED CELL DISTRIBUTION WIDTH 14.4 % (11.6-14.6)
[2021-07-03 02:32] LABS: CHLORIDE 108 mEq/L (98-107)
[2021-07-03] MEDS: ALBUMIN HUMAN 25GM/100ML (25%) IV SCH ×3 (04:15→10:24)
[2021-07-03] MEDS ORDERED: SODIUM BICARBONATE 8.4% 1 MEQ/ML 50ML SYR IV SCH ×3 (04:15→11:30)
[2021-07-03] MEDS ORDERED: DEXTROSE 50% WATER 50ML SYRINGE IV SCH (04:15)
[2021-07-03] MEDS ORDERED: MAGNESIUM 2 G PREMIX 50 ML IV SCH (06:00)
[2021-07-03] MEDS: EPINEPHRINE 5 MG in SODIUM CHLORIDE 0.9% 245 ML IV PRN ×2 (06:00→09:44)
[2021-07-03 06:09] LABS: BG BASE EXCESS -8.8 mmol/L (-2.0-2.0); BG CARBOXYHEMOGLOBIN 0.3 % (0.5-1.5); BG DEOXYHEMOGLOBIN 2.7 % (0.0-5.0); BG FRACTION INSPIRED OXYGEN 50; BG HCO3 ACT 15.9 mmol/L (22.0-26.0); BG METHEMOGLOBIN 0.9 % (0.0-1.5); BG OXYGEN SATURATION 97.3 % (92.0-98.5); BG OXYHEMOGLOBIN 96.1 % (94.0-97.0); BG PCO2 29.8 mmHg (35.0-45.0); BG PH 7.344 (7.350-7.450); BG PO2 117.4 mmHg (75.0-100.0); BG SAMPLE SITE ALINE; BG TOTAL HEMOGLOBIN 9.4 g/dL (12.0-18.0); BG VENT MODE MASK - CPAP
[2021-07-03] MEDS: MAGNESIUM HYDROXIDE 400MG/5ML 30ML UDC PO SCH ×3 (07:30→15:30)
[2021-07-03] MEDS ORDERED: VANCOMYCIN 500 MG PREMIX 100 ML IV SCH (08:00)
[2021-07-03] MEDS: DOCUSATE SODIUM 100MG CAPSULE PO SCH ×2 (09:00→16:59)
[2021-07-03] MEDS ORDERED: FAMOTIDINE 20MG/2ML VIAL IV SCH (09:00)
[2021-07-03] MEDS ORDERED: VANCOMYCIN 750 MG PREMIX 150 ML IV SCH ×3 (10:00→18:00)
[2021-07-03 11:04] LABS: NUCLEATED RED BLOOD CELLS 1 /100 WBC
[2021-07-03 11:05] LABS: PLATELET 13 x1000/uL (130-400); PLATELET ESTIMATE MARKEDLY DECREASED
[2021-07-03 11:15] LABS: HEMATOCRIT. 25.2 % (36.0-48.0); HEMOGLOBIN. 8.6 g/dL (12.0-16.0); MEAN CORPUSCULAR HEMOGLOBIN 30.2 pg (28.0-32.0); MEAN CORPUSCULAR VOLUME 88.5 fL (81.0-99.0); MEAN PLATELET VOLUME 9.6 fl (7.4-10.4); RED BLOOD CELL COUNT 2.85 mill/uL (4.2-5.4); RED CELL DISTRIBUTION WIDTH 14.6 % (11.6-14.6)
[2021-07-03] MEDS ORDERED: NOREPINEPHRINE 8MG/250ML PMX 250 ML IV PRN (11:15)
[2021-07-03] MEDS ORDERED: DEXT 10% WATER 1,000 ML IV SCH ×2 (11:15→16:30)
[2021-07-03] MEDS ORDERED: CALCIUM CHLORIDE 3,000 MG in DEXT 5% WATER 90 ML IV ONE (11:15)
[2021-07-03 11:27] LABS: PLATELET 26 x1000/uL (130-400)
[2021-07-03 11:34] LABS: CHLORIDE 108 mEq/L (98-107)
[2021-07-03 11:43] LABS: HDL CHOLESTEROL 13 mg/dL (40-59)
[2021-07-03 11:55] LABS: LDL CHOLESTEROL 5 mg/dL (5-100)
[2021-07-03] MEDS ORDERED: NOREPINEPHRINE 8 MG in DEXTROSE 5% WATER 250 ML IV PRN (12:00)
[2021-07-03] MEDS: KCL 10MEQ/50ML PREMIX 150 ML IV PRN ×3 (12:48→12:51)
[2021-07-03 12:50] LABS: BG BASE EXCESS -13.4 mmol/L (-2.0-2.0); BG CARBOXYHEMOGLOBIN 0.3 % (0.5-1.5); BG DEOXYHEMOGLOBIN 2.5 % (0.0-5.0); BG FRACTION INSPIRED OXYGEN 50; BG HCO3 ACT 13.1 mmol/L (22.0-26.0); BG OXYGEN SATURATION 97.4 % (92.0-98.5); BG OXYHEMOGLOBIN 95.2 % (94.0-97.0); BG PCO2 32.9 mmHg (35.0-45.0); BG PH 7.219 (7.350-7.450); BG PO2 129.4 mmHg (75.0-100.0); BG SAMPLE SITE ALINE; BG TOTAL HEMOGLOBIN 8.5 g/dL (12.0-18.0); BG VENT MODE VENT - SIMV
[2021-07-03] MEDS ORDERED: FUROSEMIDE 40MG/4ML VIAL IVP NR (13:00)
[2021-07-03] MEDS ORDERED: SODIUM BICARBONATE 8.4% 1 MEQ/ML 50ML SYR IV NR ×4 (14:18→22:15)
[2021-07-03] MEDS: NOREPINEPHRINE 32 MG in DEXT 5% WATER 218 ML IV PRN (16:14)
[2021-07-03 16:19] LABS: BG BASE EXCESS -16.6 mmol/L (-2.0-2.0); BG CARBOXYHEMOGLOBIN 0.2 % (0.5-1.5); BG DEOXYHEMOGLOBIN 6.2 % (0.0-5.0); BG FRACTION INSPIRED OXYGEN 50; BG HCO3 ACT 11.6 mmol/L (22.0-26.0); BG METHEMOGLOBIN 2.7 % (0.0-1.5); BG OXYGEN SATURATION 93.6 % (92.0-98.5); BG OXYHEMOGLOBIN 90.9 % (94.0-97.0); BG PCO2 36.7 mmHg (35.0-45.0); BG PH 7.119 (7.350-7.450); BG PO2 85.7 mmHg (75.0-100.0); BG SAMPLE SITE ALINE; BG TOTAL HEMOGLOBIN 9.1 g/dL (12.0-18.0); BG VENT MODE VENT - SIMV
[2021-07-03] MEDS ORDERED: PHENYLEPHRINE 100 MG in DEXT 5% WATER 240 ML IV PRN (16:30)
[2021-07-03] MEDS ORDERED: BUMETANIDE 2.5MG/10ML VIAL IV NR (16:30)
[2021-07-03] MEDS ORDERED: ALBUMIN HUMAN 25GM/100ML (25%) IV NR (16:45)
[2021-07-03 17:01] LABS: HEMATOCRIT 22.1 % (36.0-48.0); HEMOGLOBIN 7.6 g/dL (12.0-16.0)
[2021-07-03] MEDS: FUROSEMIDE 100 MG in SODIUM CHLORIDE 0.9% 90 ML IV SCH (17:24)
[2021-07-03] MEDS ORDERED: METHYLPREDNISOLONE SOD SUCC 125 MG/2 ML VIAL IV NR (17:30)
[2021-07-03] MEDS: DEXAMETHASONE 10 MG/ML VIAL IV SCH (17:40)
[2021-07-03] MEDS ORDERED: DEXAMETHASONE 10 MG/ML VIAL IV SCH (18:00)
[2021-07-03] MEDS ORDERED: SODIUM BICARBONATE 150 MEQ in DEXT 10% WATER 1,000 ML IV SCH (18:30)
[2021-07-03 18:57] LABS: BG BASE EXCESS -18.3 mmol/L (-2.0-2.0); BG CARBOXYHEMOGLOBIN 0.2 % (0.5-1.5); BG DEOXYHEMOGLOBIN 3.9 % (0.0-5.0); BG FRACTION INSPIRED OXYGEN 50; BG HCO3 ACT 9.8 mmol/L (22.0-26.0); BG METHEMOGLOBIN 2.6 % (0.0-1.5); BG OXYHEMOGLOBIN 93.3 % (94.0-97.0); BG PCO2 31.5 mmHg (35.0-45.0); BG PH 7.111 (7.350-7.450); BG PO2 104.8 mmHg (75.0-100.0); BG SAMPLE SITE ALINE; BG TOTAL HEMOGLOBIN 9.2 g/dL (12.0-18.0); BG VENT MODE VENT - SIMV
[2021-07-03] MEDS: CEFTRIAXONE 2 G in DEXTROSE 5% WATER 50 ML IV SCH (20:24)
[2021-07-03] MEDS ORDERED: DEXTROSE 50% WATER 50ML SYRINGE IV ONE (20:25)
[2021-07-03 21:12] LABS: BG BASE EXCESS -16.3 mmol/L (-2.0-2.0); BG CARBOXYHEMOGLOBIN 0.2 % (0.5-1.5); BG DEOXYHEMOGLOBIN 4.4 % (0.0-5.0); BG FRACTION INSPIRED OXYGEN 50; BG HCO3 ACT 11.6 mmol/L (22.0-26.0); BG METHEMOGLOBIN 3.1 % (0.0-1.5); BG OXYGEN SATURATION 95.4 % (92.0-98.5); BG OXYHEMOGLOBIN 92.3 % (94.0-97.0); BG PCO2 34.9 mmHg (35.0-45.0); BG PH 7.138 (7.350-7.450); BG PO2 97.7 mmHg (75.0-100.0); BG SAMPLE SITE ALINE; BG TOTAL HEMOGLOBIN 9.6 g/dL (12.0-18.0); BG TOTAL RESPIRATORY RATE 40 b/min; BG VENT MODE VENT - SIMV
[2021-07-03 21:25] LABS: NUCLEATED RED BLOOD CELLS 1 /100 WBC; PLATELET ESTIMATE MARKEDLY DECREASED
[2021-07-03 21:35] LABS: CHLORIDE 106 mEq/L (98-107)
[2021-07-03 23:37] LABS: BG BASE EXCESS -17.1 mmol/L (-2.0-2.0); BG CARBOXYHEMOGLOBIN 0.2 % (0.5-1.5); BG DEOXYHEMOGLOBIN 6.2 % (0.0-5.0); BG FRACTION INSPIRED OXYGEN 50; BG HCO3 ACT 11.5 mmol/L (22.0-26.0); BG METHEMOGLOBIN 2.5 % (0.0-1.5); BG OXYGEN SATURATION 93.6 % (92.0-98.5); BG OXYHEMOGLOBIN 91.1 % (94.0-97.0); BG PCO2 37.6 mmHg (35.0-45.0); BG PH 7.104 (7.350-7.450); BG PO2 87.2 mmHg (75.0-100.0); BG SAMPLE SITE ALINE; BG TOTAL HEMOGLOBIN 10.9 g/dL (12.0-18.0); BG TOTAL RESPIRATORY RATE 33 b/min; BG VENT MODE VENT - SIMV
[2021-07-04] VITALS (35 sets, daily range): BP systolic 45–275; BP diastolic 10–275
[2021-07-04 00:17] LABS: HEMOGLOBIN. 10.2 g/dL (12.0-16.0); MEAN CORPUSCULAR VOLUME 91.8 fL (81.0-99.0); MEAN PLATELET VOLUME 9.1 fl (7.4-10.4); RED BLOOD CELL COUNT 3.38 mill/uL (4.2-5.4); RED CELL DISTRIBUTION WIDTH 14.9 % (11.6-14.6)
[2021-07-04] MEDS ORDERED: SODIUM BICARBONATE 8.4% 1 MEQ/ML 50ML SYR IV SCH ×3 (00:45→04:45)
[2021-07-04] MEDS: DEXAMETHASONE 10 MG/ML VIAL IV SCH (01:15)
[2021-07-04] MEDS: DEXTROSE 50% WATER 50ML SYRINGE IV PRN (01:42)
[2021-07-04 01:49] LABS: BG BASE EXCESS -17.6 mmol/L (-2.0-2.0); BG CARBOXYHEMOGLOBIN 0.2 % (0.5-1.5); BG DEOXYHEMOGLOBIN 6.5 % (0.0-5.0); BG FRACTION INSPIRED OXYGEN 50; BG HCO3 ACT 11.9 mmol/L (22.0-26.0); BG METHEMOGLOBIN 0.6 % (0.0-1.5); BG OXYGEN SATURATION 93.4 % (92.0-98.5); BG OXYHEMOGLOBIN 92.7 % (94.0-97.0); BG PO2 87.4 mmHg (75.0-100.0); BG SAMPLE SITE ALINE; BG TOTAL HEMOGLOBIN 10.5 g/dL (12.0-18.0); BG TOTAL RESPIRATORY RATE 15 b/min; BG VENT MODE VENT - SIMV
[2021-07-04] MEDS: FUROSEMIDE 100 MG in SODIUM CHLORIDE 0.9% 90 ML IV SCH (01:59)
[2021-07-04] MEDS: BLOOD SUGAR DIAGNOSTIC STRIP TEST SCH ×5 (02:00→08:01)
[2021-07-04] MEDS: DOPAMINE 400MG/250ML PREMIX 250 ML IV SCH (03:26)
[2021-07-04] MEDS: NOREPINEPHRINE 32 MG in DEXT 5% WATER 218 ML IV PRN (03:59)
[2021-07-04] MEDS ORDERED: DEXT 10% IV SCH ×2 (04:00→10:00)
[2021-07-04] MEDS ORDERED: WATER IV SCH ×2 (04:00→10:00)
[2021-07-04] MEDS ORDERED: SODIUM BICARBONATE IV SCH ×2 (04:00→10:00)
[2021-07-04] MEDS: IPRATROPIUM/ALBUTEROL 0.5-3(2.5)MG/3ML NEB HHN SCH (04:13)
[2021-07-04 04:26] LABS: BG BASE EXCESS -12.2 mmol/L (-2.0-2.0); BG CARBOXYHEMOGLOBIN 0.3 % (0.5-1.5); BG DEOXYHEMOGLOBIN 9.9 % (0.0-5.0); BG FRACTION INSPIRED OXYGEN 50; BG HCO3 ACT 15.8 mmol/L (22.0-26.0); BG METHEMOGLOBIN 1.5 % (0.0-1.5); BG OXYGEN SATURATION 89.9 % (92.0-98.5); BG OXYHEMOGLOBIN 88.3 % (94.0-97.0); BG PCO2 44.8 mmHg (35.0-45.0); BG PH 7.166 (7.350-7.450); BG PO2 70.3 mmHg (75.0-100.0); BG SAMPLE SITE ALINE; BG TOTAL HEMOGLOBIN 10.4 g/dL (12.0-18.0); BG TOTAL RESPIRATORY RATE 20 b/min; BG VENT MODE VENT - AC
[2021-07-04] MEDS: EPINEPHRINE 5 MG in SODIUM CHLORIDE 0.9% 245 ML IV PRN ×3 (04:32→07:26)
[2021-07-04 04:33] LABS: PHOSPHORUS 8.3 mg/dL (2.5-4.9)
[2021-07-04 04:39] LABS: HEMATOCRIT. 29.5 % (36.0-48.0); HEMOGLOBIN. 9.9 g/dL (12.0-16.0); MEAN CORPUSCULAR HEMOGLOBIN 30.4 pg (28.0-32.0); MEAN CORPUSCULAR VOLUME 91.2 fL (81.0-99.0); MEAN PLATELET VOLUME 10.6 fl (7.4-10.4); RED BLOOD CELL COUNT 3.24 mill/uL (4.2-5.4); RED CELL DISTRIBUTION WIDTH 14.5 % (11.6-14.6)
[2021-07-04] MEDS ORDERED: CALCIUM CHLORIDE 3,000 MG in DEXT 5% WATER 250 ML IV SCH (06:00)
[2021-07-04] MEDS ORDERED: SODIUM POLYSTYRENE SULFONATE 15 G/60 ML BOT PO SCH (06:00)
[2021-07-04] MEDS ORDERED: DEXTROSE 50% WATER 50ML SYRINGE IV ONE (08:26)
[2021-07-04] MEDS ORDERED: CALCIUM CHLORIDE 1GM/10ML SYR IV ONE (08:26)
[2021-07-04] MEDS ORDERED: SODIUM BICARBONATE 8.4% 1 MEQ/ML 50ML SYR IV ONE (08:26)
[2021-07-04] MEDS ORDERED: INSULIN REGULAR (HUMULIN R) 300UNITS/3ML VIAL IV NR (09:00)
[2021-07-04] MEDS ORDERED: DEXTROSE 50% WATER 50ML SYRINGE IV NR (09:01)
[2021-07-04 10:21] LABS: NUCLEATED RED BLOOD CELLS 41 /100 WBC; PLATELET ESTIMATE MARKEDLY DECREASED
[2021-07-04 10:22] LABS: PLATELET 17 x1000/uL (130-400)
[2021-07-04 11:51] LABS: NUCLEATED RED BLOOD CELLS 105 /100 WBC; PLATELET ESTIMATE MARKEDLY DECREASED
[2021-07-04 11:52] LABS: PLATELET 21 x1000/uL (130-400)
[2021-07-05 07:45] LABS: BG DEOXYHEMOGLOBIN 26.6 % (0.0-5.0); BG FRACTION INSPIRED OXYGEN 50; BG HCO3 ACT 15.1 mmol/L (22.0-26.0); BG METHEMOGLOBIN 0.6 % (0.0-1.5); BG OXYGEN SATURATION 73.2 % (92.0-98.5); BG OXYHEMOGLOBIN 72.8 % (94.0-97.0); BG PCO2 50.2 mmHg (35.0-45.0); BG PH 7.096 (7.350-7.450); BG PO2 49.3 mmHg (75.0-100.0); BG SAMPLE SITE ALINE; BG TOTAL HEMOGLOBIN 9.1 g/dL (12.0-18.0); BG VENT MODE VENT - AC
== END 2021-07-04 10:40 | DRG 710 ==
LOC: ER 08:58 → EDBEDREQ 11:39 → EDBEDREQTM 11:39 → CVICU 13:42
PROVIDERS: ADMIT Internal Medicine; ATTEND Internal Medicine
PROC: 5A12012 Performance of Cardiac Output, Single, Manual (ICD-10-PCS; principal; 2021-07-02)
PROC: 02B50ZZ Excision of Atrial Septum, Open Approach (ICD-10-PCS; 2021-07-02)
PROC: 5A1221Z Performance of Cardiac Output, Continuous (ICD-10-PCS; 2021-07-02)
PROC: 03L00CZ Occlusion of Right Internal Mammary Artery with Extraluminal Device, Open Approach (ICD-10-PCS; 2021-07-02)
PROC: 30233N1 Transfusion of Nonautologous Red Blood Cells into Peripheral Vein, Percutaneous Approach (ICD-10-PCS; 2021-07-02)
PROC: 30233K1 Transfusion of Nonautologous Frozen Plasma into Peripheral Vein, Percutaneous Approach (ICD-10-PCS; 2021-07-02)
PROC: 30233R1 Transfusion of Nonautologous Platelets into Peripheral Vein, Percutaneous Approach (ICD-10-PCS; 2021-07-02)
PROC: 0BH17EZ Insertion of Endotracheal Airway into Trachea, Via Natural or Artificial Opening (ICD-10-PCS; 2021-07-02)
PROC: 5A1945Z Respiratory Ventilation, 24-96 Consecutive Hours (ICD-10-PCS; 2021-07-02)
PROC: 5A12012 Performance of Cardiac Output, Single, Manual (ICD-10-PCS; 2021-07-04)
DX: A41.50 Gram-negative sepsis, unspecified (principal); I46.9 Cardiac arrest, cause unspecified; N17.0 Acute kidney failure with tubular necrosis; J96.01 Acute respiratory failure with hypoxia; D61.818 Other pancytopenia; R57.8 Other shock; R65.21 Severe sepsis with septic shock; L89.154 Pressure ulcer of sacral region, stage 4; E43 Unspecified severe protein-calorie malnutrition; D15.1 Benign neoplasm of heart; G93.40 Encephalopathy, unspecified; L51.1 Stevens-Johnson syndrome; E87.2 Acidosis; D68.9 Coagulation defect, unspecified; I50.32 Chronic diastolic (congestive) heart failure; E87.0 Hyperosmolality and hypernatremia; I11.0 Hypertensive heart disease with heart failure; E03.9 Hypothyroidism, unspecified; E78.5 Hyperlipidemia, unspecified; R74.01 Elevation of levels of liver transaminase levels; I73.9 Peripheral vascular disease, unspecified; I38 Endocarditis, valve unspecified; I82.412 Acute embolism and thrombosis of left femoral vein; I51.3 Intracardiac thrombosis, not elsewhere classified; E16.2 Hypoglycemia, unspecified; G93.1 Anoxic brain damage, not elsewhere classified; E87.6 Hypokalemia; C85.10 Unspecified B-cell lymphoma, unspecified site; Z20.822 Contact with and (suspected) exposure to COVID-19; I25.10 Atherosclerotic heart disease of native coronary artery without angina pectoris; E83.42 Hypomagnesemia; E87.5 Hyperkalemia; T41.45XA Adverse effect of unspecified anesthetic, initial encounter; I97.618 Postprocedural hemorrhage of a circulatory system organ or structure following other circulatory system procedure; Y83.8 Other surgical procedures as the cause of abnormal reaction of the patient, or of later complication, without mention of misadventure at the time of the procedure; Y92.238 Other place in hospital as the place of occurrence of the external cause; Z68.1 Body mass index [BMI] 19.9 or less, adult; Z82.49 Family history of ischemic heart disease and other diseases of the circulatory system; Z95.1 Presence of aortocoronary bypass graft; B96.4 Proteus (mirabilis) (morganii) as the cause of diseases classified elsewhere
CPT/HCPCS: 36415; 36600; 71045; 80048; 80053; 80061; 80076; 81003; 82375; 82805; 82962; 83735; 84100; 84145; 84439; 84443; 84703; 85014; 85018; 85025; 85347; 86850; 86900; 86920; 86927; 87077; 87186; 87426; 93005; 93306; 93970; 94003; 94640; 99285; C1725; C1729; C1751; C1758; J0690; J0696; J1100; J1265; J1644; J1815; J1940; J2250; J2370; J2405; J2710; J2720; J2765; J2930; J3010; J3370; J3475; J3480; J3490; J7040; J7042; J7050; J7060; L3908; P9016; P9017; P9021; P9034; P9041; P9047; A4315